=== PATIENT | female | born 1990 | race Caucasian/White ===

== ENCOUNTER 2022-09-23 15:52 | Emergency (ER) | payer OTHER, BC, SELFPAY ==
[2022-09-23] VITALS (14 sets, daily range): BP systolic 129–182; BP diastolic 78–105; PULSE 82–107; RESP 18; TEMP 36.3; O2SAT 97–100; BMI 24.1
--- NOTE | 2022-09-23 16:34 | ED.NAVMDI ---
HPI - Nausea/Vomiting/Diarrhea General Chief complaint: Nausea/Vomiting Stated complaint: 8 weeks , Vomiting frequently Time Seen by Provider: 09/23/22 16:28 History of Present Illness HPI Narrative: This 32-year-old female is about 8 weeks and comes in with persistent vomiting related to her . She states that she has been vomiting over the past couple weeks. She has been taking Zofran and this initially gave her relief but says she states that now it does not seem to help. She states that she has been vomiting about every half an hour. She does not report any fevers or symptoms of infection. She does have type 1 diabetes and has a monitoring unit to observe her glucose levels. Related Data Home Medications Medication Instructions Recorded Confirmed insulin lispro 100 unit/mL 09/23/22 subcutaneous solution (Humalog U-100 Insulin) labetalol 100 mg tablet mg 09/23/22 labetalol 200 mg tablet mg 09/23/22 levothyroxine 75 mcg tablet mcg 09/23/22 ondansetron 4 mg disintegrating mg 09/23/22 tablet pyridoxine (vitamin B6) 25 mg mg 09/23/22 tablet (Vitamin B-6) Previous Rx's Medication Instructions Recorded metoclopramide HCl 10 mg tablet 10 mg PO Q6H PRN nausea and 09/23/22 (Reglan) vomiting #20 tabs ondansetron 4 mg disintegrating 4 mg PO Q6H #20 tabs 09/23/22 tablet Allergies Allergy/AdvReac Type Severity Reaction Status Date / Time morphine Allergy Verified 09/23/22 16:27 Sulfa (Sulfonamide Allergy Verified 09/23/22 16:27 Antibiotics) Review of Systems Status of ROS: Reports: 10 or more systems reviewed and unremarkable except as noted in History and below Narrative: Constitutional: No fevers, no weight gain or loss. Eyes: No discharge. No vision changes. HENT: No congestion, no sore throat, no ear pain. Cardiovascular: No chest pain, no palpitations. Respiratory: No shortness of breath, no wheezes, no cough. Gastrointestinal: No abdominal pain. Nausea and frequent vomiting related to . Genitourinary: No dysuria, no hematuria. Musculoskeletal: Normal range of motion. Skin: No rashes, no pruritis. Neurological: No dizziness, weakness, sensory change, speech change. Endo/Heme/Allergies: No bruising or bleeding. No polydipsia. Pysch: no suicidality, no anxiety, no insomnia. All other systems reviewed and are negative. PFSH PFS Social History Smoking Status: Never smoker Do you use any of these nicotine containing products: None Second hand tobacco smoke exposure: No How often do you have a drink containing alcohol: never AUDIT-C Alcohol total score: 0 Non-prescribed substance use: denies use Exam Narrative: Exam Narrative: Constitutional: Well-developed, well-nourished, no acute distress. HEENT: Normocephalic, atraumatic. Neck: Normal range of motion. Nontender. Supple. Heart: Regular. No murmurs. Normal rate. Intact distal pulses. Lungs: Clear to auscultation. No chest discomfort. No wheezes, rhonchi, or rales. Abdomen: Normal bowel sounds. Nontender. No rebound tenderness. Genitalia: Deferred. Back: No midline tenderness. Normal range of motion. Extremities: Normal range of motion. No injury. Skin: Intact. No rash. Warm. No erythema or pallor. Neurologic: No altered sensation. No weakness. Alert and oriented. Psychiatric: No suicidality. No anxiety or depression. No insomnia. Nursing notes and vitals signs are reviewed. Const: Vital Signs, click to edit/add: Vital Signs - 24 hr 09/23/22 16:23 09/23/22 17:25 09/23/22 17:26 Temperature 97.4 F L Pulse Rate 97 105 H Pulse Rate [Right Pulse Oximeter] 84 Respiratory Rate 18 Blood Pressure 148/78 H Blood Pressure [Ri ght Upper Arm] 182/105 H Pulse Oximetry 100 98 98 Oxygen Delivery Me thod Room Air 09/23/22 17:27 09/23/22 17:30 09/23/22 17:31 Temperature Pulse Rate 103 H 91 92 Pulse Rate [Right Pulse Oximeter] Respiratory Rate Blood Pressure 136/80 129/81 Blood Pressure [Ri ght Upper Arm] Pulse Oximetry 98 98 98 Oxygen Delivery Me thod 09/23/22 17:32 09/23/22 17:45 09/23/22 18:00 Temperature Pulse Rate 89 82 100 Pulse Rate [Right Pulse Oximeter] Respiratory Rate Blood Pressure Blood Pressure [Ri ght Upper Arm] Pulse Oximetry 98 97 99 Oxygen Delivery Me thod 09/23/22 18:02 09/23/22 18:03 09/23/22 18:15 Temperature Pulse Rate 107 H 107 H 98 Pulse Rate [Right Pulse Oximeter] Respiratory Rate Blood Pressure 132/79 Blood Pressure [Ri ght Upper Arm] Pulse Oximetry 98 99 98 Oxygen Delivery Me thod Course Vital Signs Vital signs: Initial Vital Signs Temperature 97.4 F L 09/23/22 16:23 Temperature Source Temporal Artery Scan 09/23/22 16:23 Pulse Rate 84 09/23/22 16:23 Respiratory Rate 18 09/23/22 16:23 Blood Pressure 182/105 H 09/23/22 16:23 Blood Pressure Mean 130 09/23/22 16:23 Blood Pressure Position Sitting 09/23/22 16:23 Pulse Oximetry 100 09/23/22 16:23 Oxygen Delivery Method 09/23/22 16:23 Vital Signs Temperature 97.4 F L 09/23/22 16:23 Pulse Rate 84 09/23/22 16:23 Respiratory Rate 18 09/23/22 16:23 Blood Pressure 182/105 H 09/23/22 16:23 Pulse Oximetry 100 09/23/22 16:23 Oxygen Delivery Method 09/23/22 16:23 Temperature 97.4 F L 09/23/22 16:23 Pulse Rate 98 09/23/22 18:15 Respiratory Rate 18 09/23/22 16:23 Blood Pressure 132/79 09/23/22 18:02 Pulse Oximetry 98 09/23/22 18:15 Oxygen Delivery Method 09/23/22 16:23 MDM - Nausea/Vomiting/Diarrhea MDM Narrative Medical decision making narrative: This patient is 8 weeks and is having hyper emesis gravidarum. An IV was established where she received a L of normal saline and 10 mg of Reglan. She states that she no longer feels nausea and has not been vomiting. I did provide a prescription for Reglan and Zofran. At the time of discharge the patient appears safe for outpatient management. The treatment plan is reviewed along with written and verbal return precautions. Reasons to return and the importance of close followup were also reviewed. Discharge Plan Discharge Clinical Impression: Hyperemesis gravidarum Patient Disposition: Home, Self-Care Condition: Stable Additional Instructions: Take medications as needed and indicated. Follow up with MD or return if worsening. Prescriptions: New ondansetron 4 mg tablet,disintegrating 4 mg PO Q6H Qty: 20 0RF metoclopramide HCl [Reglan] 10 mg tablet 10 mg PO Q6H PRN (Reason: nausea and vomiting) Qty: 20 0RF No Action labetalol 200 mg tablet pyridoxine (vitamin B6) [Vitamin B-6] 25 mg tablet Label Comments: TAKE 1 TABLET BY MOUTH THREE TIMES DAILY levothyroxine 75 mcg tablet insulin lispro [Humalog U-100 Insulin] 100 unit/mL solution Label Comments: INJECT 60 UNITS UNDER THE SKIN DAILY. 60 UNITS PER 24 HOUR PERIOD IN PUMP labetalol 100 mg tablet Label Comments: TAKE 1 TABLET BY MOUTH WITH THE 200 MG TABLET FOR A TOTAL DAILY DOSE OF 300 MG. THREE TIMES DAILY ondansetron 4 mg tablet,disintegrating Label Comments: DISSOLVE 1 TABLET IN THE MOUTH EVERY 8 HOURS NEEDED FOR NAUSEA OR VOMITING Follow Up/Referrals: Provider,Not a Local [Primary Care Provider] - Stand Alone Forms: [facility] Info Instructions
[2022-09-23] MEDS: METOCLOPRAMIDE HCL 5 MG/ML INJ 10 MG IV (16:55)
[2022-09-23] MEDS: 0.9 % SODIUM CHLORIDE 1000 ml 1,000 ML IV (16:56)
== END 2022-09-23 18:35 | disposition home or self-care (01) ==
PROVIDERS: Emergency Provider Emergency Medicine Emergency Medical Services
DX: O21.0 Mild hyperemesis gravidarum (principal); Z3A.08 8 weeks gestation of pregnancy
CPT/HCPCS: 96361; 96374; 99283; 99284; J2765; J7030